=== PATIENT | male | born 1990 | race American Indian/Alaskan Native ===

== ENCOUNTER 2020-08-23 13:53 | Emergency (ER) | payer SELFPAY ==
[2020-08-23 14:11] VITALS: BP 119/71
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
== END 2020-08-23 14:56 | disposition home or self-care (01) ==
LOC: ED 13:53
DX: M54.5 Low back pain (principal); G89.29 Other chronic pain; Z79.899 Other long term (current) drug therapy
CPT/HCPCS: 99281